=== PATIENT | male | born 1990 | race Caucasian/White ===

== ENCOUNTER 2017-07-02 02:22 | Emergency (ER) | payer BC ==
[2017-07-02 04:36] LABS: BASO % 0.2 % (0.0-1.0); EOS % 0.3 % (0.0-3.0); HEMATOCRIT 42.2 % (42.0-52.0); HEMOGLOBIN 14.5 g/dl (14.0-18.0); IMMATURE GRANULOCYTE % 0.2 % (0-3.0); LYMPH # 1.6 10^3/uL (1.5-6.5); LYMPH % 23.6 % (24.0-44.0); MEAN CORPUSCULAR HEMOGLOBIN 31.8 pg (27.0-33.0); MEAN CORPUSCULAR HGB CONC 34.4 g/dl (32.0-36.5); MEAN CORPUSCULAR VOLUME 92.5 fl (80.0-96.0); MONO # 0.5 10^3/uL (0.0-0.8); MONO % 7.2 % (0.0-5.0); NEUTROPHILS # 4.6 10^3/uL (1.8-7.7); NEUTROPHILS % 68.5 % (36.0-66.0); PLATELET COUNT, AUTOMATED 136 10^3/uL (150-450); RED BLOOD COUNT 4.56 10^6/uL (4.30-6.10); RED CELL DISTRIBUTION WIDTH 12.2 % (11.5-14.5); WHITE BLOOD COUNT 6.7 10^3/uL (4.0-10.0)
[2017-07-02 05:00] LABS: ANION GAP 10 MEQ/L (8-16); BLOOD UREA NITROGEN 10 MG/DL (7-18); CALCIUM LEVEL 8.1 MG/DL (8.5-10.1); CARBON DIOXIDE LEVEL 22 MEQ/L (21-32); CHLORIDE LEVEL 110 MEQ/L (98-107); CREATININE FOR GFR 0.63 MG/DL (0.70-1.30); GLOMERULAR FILTRATION RATE > 60.0 (>60); GLUCOSE, FASTING 92 MG/DL (70-100); POTASSIUM SERUM 4.2 MEQ/L (3.5-5.1); SODIUM LEVEL 142 MEQ/L (136-145)
[2017-07-02] MEDS: AMPICILLIN SOD/SULBACTAM SOD 3 GM in D5W MINI-BAG PLUS 100 ML IV ×2 (05:15→11:12)
[2017-07-02] MEDS: ONDANSETRON 4MG/2ML VIAL (J2405) IV (05:30)
[2017-07-02] MEDS: MORPHINE 4 MG/ML 1ML VIAL (J2270) IV ×2 (05:53→11:18)
== END 2017-07-02 12:02 | disposition home or self-care (01) ==
LOC: M ED 02:22
DX: S02.66XB Fracture of symphysis of mandible, initial encounter for open fracture (principal); Y04.8XXA Assault by other bodily force, initial encounter; Y92.410 Unspecified street and highway as the place of occurrence of the external cause
CPT/HCPCS: J2270

== ENCOUNTER 2019-05-15 08:55 | Emergency (ER) | payer BC, SELFPAY ==
[~2019-05-15] VITALS: Ht 182.9 cm; Wt 77.3 kg
[~2019-05-15 08:55] MED LIST: AUGM875T28 PO; HYDR-3715 PO; PERI0.126 MT
--- NOTE | 2019-05-15 11:21 | REP ---
Left long finger series: Four views. History: Laceration. Comparison left hand radiographs are from May 06, 2010. Findings: There is soft tissue irregularity along the radial side of the distal phalanx of the long finger. The distal tuft appears intact. No fracture or opaque five body is seen. Impression: Soft tissue defect consistent with laceration. No fracture or opaque foreign body seen. Electronically Signed by Obed Isaacs MD 05/15/2019 11:12 A
[2019-05-15] MEDS ORDERED: LIDOCAINE 2% MDV 20 ML VIAL SC ONE (12:15)
[2019-05-15 13:42] VITALS: BP 135/72
== END 2019-05-15 13:48 | disposition home or self-care (01) ==
LOC: M ED 08:55
DX: S61.313A Laceration without foreign body of left middle finger with damage to nail, initial encounter (principal); W26.8XXA Contact with other sharp object(s), not elsewhere classified, initial encounter; Y92.018 Other place in single-family (private) house as the place of occurrence of the external cause; F17.290 Nicotine dependence, other tobacco product, uncomplicated